=== PATIENT | male | born 2000 | race Caucasian/White ===

== ENCOUNTER 2020-08-12 16:21 | Emergency (ER) | payer OTHER ==
[~2020-08-12] VITALS: Ht 172.7 cm; Wt 65.3 kg
[2020-08-12] MEDS ORDERED: NAPR-837 PO (18:41)
[2020-08-12] MEDS ORDERED: NAPROXEN 250 MG TAB PO ONE (18:45)
[2020-08-12 19:35] VITALS: BP 124/68
== END 2020-08-12 19:37 | disposition home or self-care (01) ==
LOC: M ED 16:21
DX: M25.512 Pain in left shoulder (principal)